=== PATIENT | male | born 1960 | race Asian ===

== ENCOUNTER 2022-10-30 05:23 | Emergency (ER) | payer BC, OTHER ==
--- NOTE | 2022-10-30 05:47 | ED Physician Documentation ---
PD HPI MALE - Stated complaint Stated Complaint: MALE - History obtained from History obtained from: Patient - Additional information Additional information: HPI from patient. Patient c/o penile pain x one week, steadily worsening. He says he has been using a vacuum device on his penis but recently it has been leaking; in an effort to improve the seal , he has been using some type of thread or cloth around the shaft of his penis, and he thinks this material has become stuck on the penile shaft. Review of Systems Constitutional: denies: Fever : denies: Unable to Void, Incontinent PD PAST MEDICAL HISTORY - Past Medical History Cardiovascular: Hypertension, High cholesterol - Past Surgical History Past Surgical History: No - Present Medications Home Medications: Ambulatory Orders Medication Instructions Recorded Confirmed lisinopriL [Lisinopril] 10 mg PO DAILY 06/30/14 10/30/22 Metformin HCl 1,000 mg PO BID 10/30/22 10/30/22 Oxycodone HCl/Acetaminophen 1 - 2 each PO Q6H PRN #14 tablet 10/30/22 [Percocet 5-325 mg Tablet] Rosuvastatin Calcium [Crestor] 20 mg PO DAILY 10/30/22 10/30/22 cephALEXin [Keflex] 500 mg PO Q6H #28 cap 10/30/22 - Allergies Allergies/Adverse Reactions: Allergies Allergy/AdvReac Type Severity Reaction Status Date / Time No Known Drug Allergies Allergy Verified 06/30/14 17:56 - Social History Does the pt smoke?: No Smoking Status: Never smoker Does the pt drink ETOH?: No Does the pt have substance abuse?: No PD ED PE NORMAL - Vitals Vital signs reviewed: Yes - General General: Alert and oriented X 3, No acute distress, Well developed/nourished PD ED PE EXPANDED - Male Male : Other (thready string-like material is wrapped around the mid/distal penile shaft with circumferential erosion that relatively spares the dorsal aspect) Results - Vitals Vitals: Oxygen O2 Source Room air PD Medical Decision Making - ED course Complexity details: re-evaluated patient, considered differential, d/w patient ED course: Patient has string-like material around the mid/distal shaft of his penis which he was using to improve the seal of a vacuum device he has been using on his penis. He is reluctant to discuss why he uses the device, but this is irrelevant to his care at this time. There is significant circumferential erosion into the penis , making removal difficult due to both visualization as well as patient discomfort. I am able to elevate the material off of the dorsal aspect of the penis , allowing for cutting of the string with suture-removal scissors. I was then able to remove the bulk of the string although this was associated with significant painful discomfort. There are finer filaments of string still in place that are deep within the fissure created by the tourniquet effect of this material having been in place for (per patient) approximately one week. Thus, before proceeding, he is given 10mg PO percocet (two tablets from a take-home pack of percocet, as he will likely need more pain medication when discharged home). After approximately 40-45 minutes (allowing for the percocet to take effect), I was able to pull more of the string filaments out from the fissured area, but there is still a single, fine string-like filament remaining which causes too much pain when I try to manipulate it. He is then given 1mg IM dilaudid and after adequate time for this to take effect, I was able to remove the remaining string which was found to be wrapped around the shaft five times. I was subsequently able to visualize the entirety of the fissured area and there is no remaining foreign body and no evidence of erosion into the urethra nor the corpora cavernosus/spongium. The shaft distal to the lesion , as well as the glans, are without discoloration (no evidence of necrosis). There is mild erythema of the fissure and thus he is also given PO cephalexin prior to d/c home. I advised him to not use the vacuum device again until and unless he is advised otherwise by a urologist. I emphasized to him the need for follow up with urology for reevaluation of the lesion, and that he can contact his primary care provider to ask for follow up/referral. Return precautions are carefully reviewed with patient. prescriptions for cephalexin and percocet are electron ically submitted to patient's pharmacy of choice Departure - Departure Disposition: 01 Home, Self Care Clinical Impression: Lesion of penis Condition: Good Prescriptions: cephALEXin [Keflex] 500 mg PO Q6H #28 cap Oxycodone HCl/Acetaminophen [Percocet 5-325 mg Tablet] 1 - 2 each PO Q6H PRN #14 tablet PRN Reason: pain Comments: I was able to remove the material that was wrapped around the shaft of your penis, but there is a concerning amount of erosion due to the tourniquet affect of this material. You need to follow up with a urologist. If you do not already have a urologist, as we discussed, I recommend that you contact your primary care provider this morning when their office opens to arrange for the next available appointment; your primary care provider can provide you with the referral to a urologist. Prescriptions for an antibiotic (cephalexin) and pain medication (Percocet) have been electronically submitted to these [facility]'s pharmacy in [place]. The pain medication (Percocet) is a narcotic/opiate medication. Please do not drive for a minimum of 6 hours after taking a dose this medication, and only after 6 hours if you do not feel any drowsiness. Wash the area with soap and water twice daily. I also recommend that you apply a topical antibiotic (such as bacitracin) to the affected area twice per day I am prescribing a short course of narcotic pain medication for you. These are potentially dangerous and addictive medications that should be used carefully. These medications may constipate you. Take an [id number]-[id number]-[id number] stool softener (docusate) twice daily with plenty of water while taking these medications. If you go 24 hours without a bowel movement, take [id number] miralax, per package instructions. Do not drink or drive while taking these medications. If you received narcotic or sedating medications while in the emergency department, do not drive for 24 hours. Store this medication in a safe, secure place and out of reach of children. It is a violation of federal law to give or sell this medication to another person or to use in a manner other than prescribed. The ED will not refill narcotic prescriptions, including prescriptions lost or stolen. To dispose of unwanted medications: 1. [facility] [address] in [place] has a medication drop box. They accept prescription medications (in pill form) Wednesday through Wednesday 9:00 a.m. to 5:00 p.m. 2. The [facility] [employer] accepts prescription medications (in pill form only) for disposal year round. Call for more information. 3. Contact the [facility] for the next [facility] sponsored prescription drug collection event. , [phone], or [phone]; Discharge Date/Time: 10/30/22 09:09
[2022-10-30] MEDS ORDERED: oxyCODONE/ACET 5/325 Prepack 4 PO STA (05:56)
[2022-10-30] MEDS ORDERED: cephALEXin 250 MG CAPSULE PO STA (06:13)
[2022-10-30] MEDS ORDERED: HYDROmorphone 1 MG/ML CARPUJECT IM STA (07:19)
[2022-10-30 09:12] VITALS: BP 144/76
== END 2022-10-30 09:09 | disposition home or self-care (01) ==
LOC: ED 05:23
DX: S30.842A External constriction of penis, initial encounter (principal); W49.02XA String or thread causing external constriction, initial encounter; Y93.89 Activity, other specified
CPT/HCPCS: 96372; 99283; 99284; A9270; J1170

== ENCOUNTER 2024-04-12 12:15 | Outpatient (CLI) | payer OTHER ==
--- NOTE | 2024-04-12 17:23 | XRAY Report ---
PROCEDURE: Ribs w/PA Chest 3+V LT INDICATIONS: FLANK PAIN, LEFT TECHNIQUE: 3 views of the ribs were acquired, along with a single view chest. COMPARISON: None. FINDINGS: Surgical changes and devices: None. Bones and chest wall: No fractures or dislocations. No suspicious bony lesions. Overlying soft tis sues appear unremarkable. Lungs and pleura: No pleural effusions or pneumothorax. Lungs appear clear. Mediastinum: Mediastinal contours appear normal. Heart size is normal. Aortic arch is calcified, in dicating atherosclerosis. IMPRESSION: No displaced rib fracture or pneumothorax. Reviewed by: Keegan Tadeo MD on 04/12/2024 5:22 PM PDT Approved by: Keegan Tadeo MD on 04/12/2024 5:22 PM PDT Station ID: [id number]
== END 2024-04-12 12:30 | disposition home or self-care (01) ==
LOC: DI.N 12:15
PROVIDERS: ATTEND Physician Assistant
DX: R10.9 Unspecified abdominal pain (principal)